=== PATIENT | male | born 1995 | race Caucasian/White ===

== ENCOUNTER 2022-05-21 02:03 | Emergency (ER) | payer MEDICAID, OTHER ==
[2022-05-21 02:15] VITALS: BP 128/77; PULSE 80
[2022-05-21] MEDS ORDERED: Take Home: Amoxicillin/Clavulanate K 875-125 MG Tab, 2 Tab Pack PO ONE (02:18)
[2022-05-21] MEDS ORDERED: Ketorolac 30 MG/ML SDV IM ONE (02:19)
== END 2022-05-21 02:35 | disposition home or self-care (01) ==
LOC: VM.ED 02:03
DX: K04.7 Periapical abscess without sinus (principal); F17.210 Nicotine dependence, cigarettes, uncomplicated; Z88.2 Allergy status to sulfonamides
CPT/HCPCS: 96372; 99282; A9270-GY; J1885

== ENCOUNTER 2022-12-23 18:11 | Emergency (ER) | payer OTHER ==
[2022-12-23 18:25] VITALS: BP 106/69; PULSE 97
[2022-12-23 18:32] LABS: BASOPHILS PERCENT AUTO 0.2 % (0.2-1.2); EOSINOPHILS ABSOLUTE AUTO 0.1 x10^3/uL (0.0-0.5); EOSINOPHILS PERCENT AUTO 0.6 % (0.0-4.0); HEMATOCRIT 45.9 % (40.0-52.0); HEMOGLOBIN 16.4 g/dL (14.0-18.0); IMMATURE GRAN ABSOLUTE AUTO 0.02 x10^3/uL (0.00-0.07); LYMPHOCYTES ABSOLUTE AUTO 1.4 x10^3/uL (1.0-4.8); LYMPHOCYTES PERCENT AUTO 15.2 % (25.0-50.0); MEAN CORPUSCULAR HEMOGLOBIN 30.8 pg (26.0-32.0); MEAN CORPUSCULAR HGB CONC 35.7 g/dL (32.0-36.0); MEAN CORPUSCULAR VOLUME 86.3 fL (78.0-93.0); MONOCYTES ABSOLUTE AUTO 0.5 x10^3/uL (0.0-0.8); MONOCYTES PERCENT AUTO 5.3 % (2.0-11.0); NEUTROPHILS ABSOLUTE AUTO 7.1 x10^3/uL (1.8-7.7); NEUTROPHILS PERCENT AUTO 78.5 % (50.0-80.0); PLATELET COUNT,PLT 237 x10^3/uL (130-400); RED BLOOD CELL COUNT 5.32 x10^6/uL (4.5-6.0); WHITE BLOOD CELL COUNT,WBC 9.1 x10^3/uL (4.0-10.0)
[2022-12-23 18:55] LABS: A/G RATIO 1.02; ALANINE AMINOTRANSFERASE,ALT 45 U/L (16-63); ALBUMIN 4.3 g/dL (3.4-5.0); ALKALINE PHOSPHATASE 109 U/L (46-116); ASPARTATE AMNIOTRANSFERASE,AST 23 U/L (15-37); BILIRUBIN TOTAL 0.6 mg/dL (0.2-1.0); BLOOD UREA NITROGEN,BUN 19 mg/dL (7-18); CALCIUM 9.2 mg/dL (8.5-10.1); CARBON DIOXIDE,CO2 29 mmol/L (21-32); CHLORIDE,CL 101 mmol/L (98-107); CREATININE 1.1 mg/dL (0.70-1.30); GLUCOSE RANDOM 104 mg/dL (70-99); PROTEIN TOTAL,TP 8.5 g/dL (6.4-8.2); SODIUM,NA 141 mmol/L (136-145)
[2022-12-23 18:58] LABS: ESTIMATED GFR 96 mL/min (>=60)
[2022-12-23] MEDS ORDERED: Ketorolac 30 MG/ML SDV IM ONE (19:15)
[2022-12-23] MEDS ORDERED: Take Home: predniSONE 20 MG, 2 Tab Pack PO ONE (19:15)
[2022-12-23] MEDS ORDERED: predniSONE 20 MG Tab PO ONE (19:16)
== END 2022-12-23 19:30 | disposition home or self-care (01) ==
LOC: VM.ED 18:11
DX: R09.1 Pleurisy (principal); Z88.2 Allergy status to sulfonamides
CPT/HCPCS: 36415; 71045; 80053; 85025; 96372; 99285; J1885; J7512

== ENCOUNTER 2024-05-28 03:26 | Emergency (ER) | payer OTHER ==
[2024-05-28 03:49] VITALS: BP 130/70; PULSE 96
== END 2024-05-28 03:55 | disposition home or self-care (01) ==
LOC: VM.ED 03:26
DX: F41.9 Anxiety disorder, unspecified (principal); Z79.899 Other long term (current) drug therapy; Z88.2 Allergy status to sulfonamides
CPT/HCPCS: 99283

== ENCOUNTER 2024-08-06 01:15 | Emergency (ER) | payer OTHER ==
[2024-08-06 01:36] VITALS: BP 119/54; PULSE 92
== END 2024-08-06 01:46 | disposition home or self-care (01) ==
LOC: VM.ED 01:15
DX: T16.2XXA Foreign body in left ear, initial encounter (principal); Z88.2 Allergy status to sulfonamides; Z79.899 Other long term (current) drug therapy; W44.8XXA Other foreign body entering into or through a natural orifice, initial encounter
CPT/HCPCS: 69200; 99282-25; 99283